=== PATIENT | male | born 1985 | race Caucasian/White ===

== ENCOUNTER 2018-01-22 18:17 | Emergency (ER) | payer BC ==
[2018-01-22] MEDS: BENOXINATE HCL/FLUORESCEIN SOD 5 ML OPHTH RIGHT EYE (20:47)
== END 2018-01-22 21:44 | disposition home or self-care (01) ==
LOC: FTE 18:17
DX: H57.8 Other specified disorders of eye and adnexa (principal)
CPT/HCPCS: 99283

== ENCOUNTER 2018-04-01 10:25 | Emergency (ER) | payer BC ==
[2018-04-01] MEDS: SOD CHLORIDE 0.9% 1,000 ML IV (11:32)
[2018-04-01] MEDS: KETOROLAC 30 MG INJ IV (11:33)
[2018-04-01 11:36] LABS: ADD MAN DIFF? NO
[2018-04-01 11:38] LABS: BASOPHILS % 0.2 % (0.0-2.0); EOSINOPHILS % 0.2 % (0.0-7.0); HEMATOCRIT 45.3 % (42.0-52.0); HEMOGLOBIN 15.6 g/dl (14.0-18.0); LYMPHOCYTES # 1.1 10^3/ul (0.8-2.9); LYMPHOCYTES % 8.4 % (15.0-51.0); MEAN CORPUSCULAR HEMOGLOBIN 33.1 pg (29.0-33.0); MEAN CORPUSCULAR HGB CONC 34.4 g/dl (32.0-37.0); MEAN CORPUSCULAR VOLUME 96.2 fl (82.0-101.0); MONOCYTES % 7.7 % (0.0-11.0); NEUTROPHIL # 10.8 10^3/ul (1.6-7.5); NEUTROPHILS % 83.1 % (39.0-77.0); PLATELET COUNT 159 10^3/UL (140-415); RED BLOOD COUNT 4.71 10^6/ul (4.70-6.10); RED CELL DISTRIBUTION WIDTH 11.8 % (11.5-14.5)
[2018-04-01 11:38] LABS: WHITE BLOOD COUNT 12.9 10^3/ul (4.8-10.8)
[2018-04-01 11:41] LABS: ADD UMIC NO; UR ASCORBIC ACID NEGATIVE (NEGATIVE); UR BILIRUBIN (Dip) NEGATIVE (NEGATIVE); UR BLOOD (Dip) NEGATIVE (NEGATIVE); UR CLARITY CLEAR (CLEAR); UR COLOR YELLOW (YELLOW); UR GLUCOSE (Dip) NEGATIVE (NEGATIVE); UR KETONES (Dip) TRACE mg/dL (NEGATIVE); UR LEUKOCYTE ESTERASE (Dip) NEGATIVE Leu/ul (NEGATIVE); UR NITRITE (Dip) NEGATIVE (NEGATIVE); UR SPECIFIC GRAVITY (Dip) 1.024 (1.003-1.030); UR TOTAL PROTEIN (Dip) NEGATIVE (NEGATIVE); UR UROBILINOGEN (Dip) 2+ mg/dL (NEGATIVE)
[2018-04-01 11:52] LABS: LACTIC ACID 0.9 mmol/L (0.5-2.0)
[2018-04-01 11:58] LABS: ALANINE AMINOTRANSFERASE 32 IU/L (13-69); ALBUMIN 4.6 g/dl (3.3-4.9); ALBUMIN/GLOBULIN RATIO 1.21; ALKALINE PHOSPHATASE 81 IU/L (42-121); ANION GAP 13 (8-16); ASPARTATE AMINO TRANSFERASE 21 IU/L (15-46); BILIRUBIN,INDIRECT 0.6 mg/dl (0-1.1); BILIRUBIN,TOTAL 0.6 mg/dl (0.2-1.3); BLOOD UREA NITROGEN 8 mg/dl (7-20); CALCIUM 9.4 mg/dl (8.4-10.2); CARBON DIOXIDE 30 mmol/L (21-31); CHLORIDE 102 mmol/L (97-110); CREATININE 0.73 mg/dl (0.61-1.24); GLUCOSE 126 mg/dl (70-220); LIPASE 70 U/L (23-300); POTASSIUM 4.4 mmol/L (3.5-5.1); SODIUM 141 mmol/L (135-144); TOTAL PROTEIN 8.4 g/dl (6.1-8.1)
== END 2018-04-01 13:59 ==
LOC: FTE 10:25
DX: M54.5 Low back pain (principal); M54.6 Pain in thoracic spine; R51 Headache
CPT/HCPCS: 36415; 70450; 72128; 72131; 80053; 81003; 83605; 83690; 85025; 87040; 96374; 99285-25

== ENCOUNTER 2018-06-02 14:52 | Emergency (ER) | payer BC ==
[2018-06-02] MEDS: LIDOCAINE/MYLANTA 40 ML BTL PO (17:13)
[2018-06-02] MEDS: FAMOTIDINE 20 MG TAB PO (17:13)
[2018-06-02 17:16] LABS: ADD MAN DIFF? NO
[2018-06-02 17:21] LABS: BASOPHILS % 0.3 % (0.0-2.0); EOSINOPHILS # 0.1 10^3/ul (0.0-0.5); EOSINOPHILS % 0.8 % (0.0-7.0); HEMATOCRIT 42.7 % (42.0-52.0); HEMOGLOBIN 14.4 g/dl (14.0-18.0); LYMPHOCYTES % 31.5 % (15.0-51.0); MEAN CORPUSCULAR HEMOGLOBIN 31.9 pg (29.0-33.0); MEAN CORPUSCULAR HGB CONC 33.7 g/dl (32.0-37.0); MEAN CORPUSCULAR VOLUME 94.5 fl (82.0-101.0); MEAN PLATELET VOLUME 9.9 fl (7.4-10.4); MONOCYTE # 0.5 10^3/ul (0.3-0.9); MONOCYTES % 8.1 % (0.0-11.0); NEUTROPHIL # 3.8 10^3/ul (1.6-7.5); NEUTROPHILS % 59.1 % (39.0-77.0); PLATELET COUNT 179 10^3/UL (140-415); RED BLOOD COUNT 4.52 10^6/ul (4.70-6.10); RED CELL DISTRIBUTION WIDTH 12.8 % (11.5-14.5)
[2018-06-02 17:21] LABS: WHITE BLOOD COUNT 6.4 10^3/ul (4.8-10.8)
[2018-06-02 17:41] LABS: ALANINE AMINOTRANSFERASE 32 IU/L (13-69); ALBUMIN 4.7 g/dl (3.3-4.9); ALBUMIN/GLOBULIN RATIO 1.34; ALKALINE PHOSPHATASE 70 IU/L (42-121); ANION GAP 17 (8-16); ASPARTATE AMINO TRANSFERASE 30 IU/L (15-46); BILIRUBIN,INDIRECT 0.3 mg/dl (0-1.1); BILIRUBIN,TOTAL 0.3 mg/dl (0.2-1.3); BLOOD UREA NITROGEN 14 mg/dl (7-20); CALCIUM 9.3 mg/dl (8.4-10.2); CARBON DIOXIDE 27 mmol/L (21-31); CHLORIDE 104 mmol/L (97-110); CREATININE 0.71 mg/dl (0.61-1.24); GLUCOSE 94 mg/dl (70-220); LIPASE 126 U/L (23-300); POTASSIUM 4.7 mmol/L (3.5-5.1); SODIUM 143 mmol/L (135-144); TOTAL PROTEIN 8.2 g/dl (6.1-8.1)
[2018-06-02 17:55] LABS: ADD UMIC YES; UR AMORPHOUS CRYSTAL MANY /HPF (NONE SEEN); UR ASCORBIC ACID NEGATIVE (NEGATIVE); UR BILIRUBIN (Dip) NEGATIVE (NEGATIVE); UR BLOOD (Dip) NEGATIVE (NEGATIVE); UR CLARITY TURBID (CLEAR); UR COLOR YELLOW (YELLOW); UR GLUCOSE (Dip) NEGATIVE (NEGATIVE); UR KETONES (Dip) NEGATIVE (NEGATIVE); UR LEUKOCYTE ESTERASE (Dip) NEGATIVE Leu/ul (NEGATIVE); UR NITRITE (Dip) NEGATIVE (NEGATIVE); UR RBC 1 /HPF (0-5); UR SPECIFIC GRAVITY (Dip) 1.021 (1.003-1.030); UR TOTAL PROTEIN (Dip) NEGATIVE (NEGATIVE); UR UROBILINOGEN (Dip) 2+ mg/dL (NEGATIVE); UR WBC 23 /HPF (0-5)
== END 2018-06-02 19:23 | disposition home or self-care (01) ==
LOC: FTE 14:52
DX: R10.12 Left upper quadrant pain (principal)
CPT/HCPCS: 36415; 80053; 81001; 83690; 85025; 99283

== ENCOUNTER 2018-07-03 19:23 | Emergency (ER) | payer BC ==
[2018-07-03] MEDS: AZITHROMYCIN 250 MG TAB PO (22:44)
[2018-07-03] MEDS: CEFTRIAXONE 250 MG INJ IM (22:47)
== END 2018-07-03 23:02 | disposition home or self-care (01) ==
LOC: FTE 19:23
DX: R36.9 Urethral discharge, unspecified (principal)
CPT/HCPCS: 87081; 87591; 96372; 99284-25

== ENCOUNTER 2019-01-18 14:17 | Emergency (ER) | payer BC ==
[2019-01-18] MEDS: LIDOCAINE/MYLANTA 40 ML BTL PO (16:17)
[2019-01-18] MEDS: KETOROLAC 30 MG INJ IM (16:18)
[2019-01-18 16:23] LABS: ADD MAN DIFF? NO
[2019-01-18 16:27] LABS: ABNORMAL IP MESSAGE 1; BASOPHILS % 0.1 % (0.0-2.0); EOSINOPHILS % 0.2 % (0.0-7.0); HEMOGLOBIN 15.8 g/dl (14.0-18.0); LYMPHOCYTES # 0.6 10^3/ul (0.8-2.9); LYMPHOCYTES % 6.2 % (15.0-51.0); MEAN CORPUSCULAR HEMOGLOBIN 31.9 pg (29.0-33.0); MEAN CORPUSCULAR HGB CONC 33.6 g/dl (32.0-37.0); MEAN CORPUSCULAR VOLUME 94.9 fl (82.0-101.0); MEAN PLATELET VOLUME 9.9 fl (7.4-10.4); MONOCYTE # 0.4 10^3/ul (0.3-0.9); NEUTROPHIL # 8.5 10^3/ul (1.6-7.5); NEUTROPHILS % 89.2 % (39.0-77.0); PLATELET COUNT 178 10^3/UL (140-415); POSITIVE DIFF @See below; RED BLOOD COUNT 4.95 10^6/ul (4.70-6.10); RED CELL DISTRIBUTION WIDTH 11.9 % (11.5-14.5)
[2019-01-18 16:27] LABS: WHITE BLOOD COUNT 9.6 10^3/ul (4.8-10.8)
[2019-01-18 16:36] LABS: ADD UMIC YES; UR ASCORBIC ACID NEGATIVE (NEGATIVE); UR BILIRUBIN (Dip) NEGATIVE (NEGATIVE); UR BLOOD (Dip) 1+ mg/dL (NEGATIVE); UR CLARITY CLEAR (CLEAR); UR COLOR YELLOW (YELLOW); UR GLUCOSE (Dip) NEGATIVE (NEGATIVE); UR KETONES (Dip) NEGATIVE (NEGATIVE); UR LEUKOCYTE ESTERASE (Dip) NEGATIVE Leu/ul (NEGATIVE); UR NITRITE (Dip) NEGATIVE (NEGATIVE); UR RBC 1 /HPF (0-5); UR SPECIFIC GRAVITY (Dip) 1.024 (1.003-1.030); UR TOTAL PROTEIN (Dip) NEGATIVE (NEGATIVE); UR UROBILINOGEN (Dip) NEGATIVE (NEGATIVE); UR WBC 0 /HPF (0-5)
[2019-01-18 16:48] LABS: ALANINE AMINOTRANSFERASE 24 IU/L (13-69); ALBUMIN 4.9 g/dl (3.3-4.9); ALKALINE PHOSPHATASE 68 IU/L (42-121); ANION GAP 12 (5-13); ASPARTATE AMINO TRANSFERASE 23 IU/L (15-46); BILIRUBIN,INDIRECT 0.7 mg/dl (0-1.1); BILIRUBIN,TOTAL 0.7 mg/dl (0.2-1.3); BLOOD UREA NITROGEN 13 mg/dl (7-20); CALCIUM 9.5 mg/dl (8.4-10.2); CARBON DIOXIDE 28 mmol/L (21-31); CHLORIDE 102 mmol/L (97-110); CREATININE 0.73 mg/dl (0.61-1.24); Estimated GFR > 60 mL/min (>60); GLUCOSE 102 mg/dl (70-220); LIPASE 66 U/L (23-300); POTASSIUM 4.3 mmol/L (3.5-5.1); SODIUM 142 mmol/L (135-144); TOTAL PROTEIN 8.4 g/dl (6.1-8.1)
== END 2019-01-18 17:46 | disposition home or self-care (01) ==
LOC: FTE 14:17
DX: R10.12 Left upper quadrant pain (principal)
CPT/HCPCS: 74019; 80053; 81001; 83690; 85025; 96372; 99284-25

== ENCOUNTER 2019-05-01 12:14 | Emergency (ER) | payer BC ==
[2019-05-01] MEDS: predniSONE 20 MG TAB PO (12:41)
== END 2019-05-01 12:47 | disposition home or self-care (01) ==
LOC: FTE 12:14
DX: B35.3 Tinea pedis (principal)
CPT/HCPCS: 99283; J7512